=== PATIENT | female | born 1995 | race Caucasian/White ===

== ENCOUNTER → 2016-12-27 | Outpatient (REF) | payer OTHER ==
[~2016-12-27] MED LIST: ALBU17IN2 INH; BUPR75TA5 PO; MONT10TA2 PO; OMEP10CASR PO; PRIL40CA PO; SING10TA32 PO; TRAZO50TA PO
== END ==
LOC: M LAB REF 11:42
PROVIDERS: ATTEND Physician Assistant
DX: J11.1 Influenza due to unidentified influenza virus with other respiratory manifestations (principal)

== ENCOUNTER 2017-04-02 22:57 | Emergency (ER) | payer OTHER, SELFPAY ==
[~2017-04-02] VITALS: Ht 167.6 cm; Wt 202.3 kg
[2017-04-02 22:57] VITALS: BP 176/83
== END 2017-04-03 03:41 | disposition left against medical advice (07) ==
LOC: M ED 04-03 03:31
DX: R21 Rash and other nonspecific skin eruption (principal); Z53.29 Procedure and treatment not carried out because of patient's decision for other reasons

== ENCOUNTER 2017-08-02 21:13 | Emergency (ER) | payer SELFPAY ==
[~2017-08-02] VITALS: Ht 175.3 cm; Wt 188.6 kg
[2017-08-02 23:24] LABS: BASO # 0.1 10^3/uL (0.0-0.2); BASO % 0.3 % (0.0-1.0); EOS # 0.3 10^3/uL (0.0-0.50); EOS % 2.3 % (0.0-3.0); LYMPH % 20.1 % (24.0-44.0); MEAN CORPUSCULAR HEMOGLOBIN 27.3 pg (27.0-33.0); MEAN CORPUSCULAR HGB CONC 32.5 g/dl (32.0-36.5); MONO # 1.4 10^3/uL (0.0-0.8); MONO % 9.4 % (0.0-5.0); NEUTROPHILS # 10.1 10^3/uL (1.8-7.7); NEUTROPHILS % 66.9 % (36.0-66.0); PLATELET COUNT, AUTOMATED 307 10^3/uL (150-450); RED CELL DISTRIBUTION WIDTH 12.9 % (11.5-14.5); WHITE BLOOD COUNT 15.1 10^3/uL (4.0-10.0)
[2017-08-02 23:50] LABS: ANION GAP 7 MEQ/L (8-16); BLOOD UREA NITROGEN 10 MG/DL (7-18); CALCIUM LEVEL 8.7 MG/DL (8.5-10.1); CARBON DIOXIDE LEVEL 25 MEQ/L (21-32); CHLORIDE LEVEL 106 MEQ/L (98-107); CREATININE FOR GFR 0.73 MG/DL (0.55-1.02); GLUCOSE, FASTING 99 MG/DL (70-105); POTASSIUM SERUM 4.3 MEQ/L (3.5-5.1); SODIUM LEVEL 138 MEQ/L (136-145)
--- NOTE | 2017-08-03 | REPUSA ---
Clinical history: left upper leg swelling. Findings: Real-time ultrasound imaging of the left upper leg was performed. There is a complex irregu lar fluid collection at the site of concern in the left upper thigh, measuring 4.8 x 2.5 x 4.5 cm. N o other gross abnormalities. Impression: Findings are most consistent with a large abscess.
[2017-08-03] MEDS ORDERED: CLINDAMYCIN 900 MG in APPROPRIATE DILUENT 1 EA IV ONE (00:15)
[2017-08-03] MEDS ORDERED: LIDOCAINE 2% W/EPIN INJ 20ML **PRES FREE INJ ONE (00:15)
[2017-08-03] MEDS ORDERED: CLEO300C2 PO (00:45)
[2017-08-03] MEDS ORDERED: OXYCODONE/APAP 5MG/325MG(BULK FOR ED) 1 TABLET PO ONE (01:00)
[2017-08-03 01:34] VITALS: BP 136/66
== END 2017-08-03 01:45 | disposition home or self-care (01) ==
LOC: M ED 21:13
DX: L02.416 Cutaneous abscess of left lower limb (principal); J45.909 Unspecified asthma, uncomplicated; F41.9 Anxiety disorder, unspecified; F33.9 Major depressive disorder, recurrent, unspecified; Z88.8 Allergy status to other drugs, medicaments and biological substances; F17.210 Nicotine dependence, cigarettes, uncomplicated

== ENCOUNTER 2017-08-05 19:05 | Emergency (ER) | payer SELFPAY ==
[~2017-08-05] VITALS: Ht 175.3 cm; Wt 188.6 kg
[~2017-08-05 19:05] MED LIST changes: +CLEO300C2 PO
[2017-08-05 19:06] VITALS: BP 151/71
== END 2017-08-05 21:40 | disposition left against medical advice (07) ==
LOC: M ED 19:05
DX: Z53.29 Procedure and treatment not carried out because of patient's decision for other reasons (principal)

== ENCOUNTER → 2017-11-05 | Outpatient (REF) | payer SELFPAY | LOC: M LAB 15:28 | DX: R50.9 Fever, unspecified (principal) | CPT/HCPCS: 87633 ==

== ENCOUNTER 2017-11-06 16:31 | Emergency (ER) | payer SELFPAY ==
[2017-11-06] MEDS: predniSONE 20 MG TAB PO (17:45)
[2017-11-06] MEDS: ALBUTEROL SULFATE 2.5 MG/0.5 ML INH NEB SOLN NEB ×2 (17:52→19:13)
== END 2017-11-06 20:07 | disposition home or self-care (01) ==
LOC: M ED 16:31
DX: J45.901 Unspecified asthma with (acute) exacerbation (principal); J20.5 Acute bronchitis due to respiratory syncytial virus; K21.9 Gastro-esophageal reflux disease without esophagitis; F33.9 Major depressive disorder, recurrent, unspecified; F41.9 Anxiety disorder, unspecified; E28.2 Polycystic ovarian syndrome; F17.210 Nicotine dependence, cigarettes, uncomplicated; Z79.51 Long term (current) use of inhaled steroids; Z79.899 Other long term (current) drug therapy; Z79.2 Long term (current) use of antibiotics; Z88.8 Allergy status to other drugs, medicaments and biological substances; Z87.442 Personal history of urinary calculi
CPT/HCPCS: 71046

== ENCOUNTER 2018-07-15 17:14 | Emergency (ER) | payer SELFPAY ==
[2018-07-15] MEDS: IPRATROPIUM 0.5MG/ALBUTEROL 2.5MG INH SOL UD 3ML (DUONEB)(J7620) NEB (17:53)
== END 2018-07-15 18:50 | disposition home or self-care (01) ==
LOC: M ED 17:14
DX: J45.901 Unspecified asthma with (acute) exacerbation (principal); Z87.01 Personal history of pneumonia (recurrent); Z72.0 Tobacco use; Z88.8 Allergy status to other drugs, medicaments and biological substances
CPT/HCPCS: 71046

== ENCOUNTER 2019-02-02 12:09 | Emergency (ER) | payer BC, SELFPAY ==
[~2019-02-02] VITALS: Ht 175.3 cm; Wt 187.9 kg
[~2019-02-02 12:09] MED LIST changes: +ADV500INH INH; +MUCI600T37 PO; +OMEP40CA2 PO; +PRED20TA PO; +PROAAER10 INH; +PROZ40CA PO; +TRAZ1TAB6 PO; -TRAZO50TA PO; +VENTAER INH
[2019-02-02] MEDS ORDERED: KETOROLAC 30 MG/ML VIAL (J1885) IV ONE (13:00)
[2019-02-02] MEDS ORDERED: NS 1,000 ML IV ONE (13:00)
[2019-02-02] MEDS ORDERED: METOCLOPRAMIDE INJ 10MG/2ML VIAL (J2765) IV ONE (13:00)
[2019-02-02] MEDS ORDERED: diphenhydrAMINE INJ 50MG/ML VIAL (J1200) IV ONE (13:00)
[2019-02-02] MEDS ORDERED: ACETAMINOPHEN 500 MG TAB PO ONE (14:00)
[2019-02-02 15:05] VITALS: BP 123/62
== END 2019-02-02 15:08 | disposition home or self-care (01) ==
LOC: M ED 12:09
DX: G43.909 Migraine, unspecified, not intractable, without status migrainosus (principal); Z88.8 Allergy status to other drugs, medicaments and biological substances; F17.210 Nicotine dependence, cigarettes, uncomplicated
CPT/HCPCS: 81025; 87880; 96361; 96374; 96375; 99284; J1200; J1885; J2765

== ENCOUNTER 2019-05-08 20:42 | Emergency (ER) | payer BC ==
[~2019-05-08] VITALS: Ht 175.3 cm; Wt 174.6 kg
[~2019-05-08 20:42] MED LIST changes: +ZOFR4TAB16 PO
[2019-05-08 21:36] LABS: BASO % 0.4 % (0.0-1.0); EOS # 0.1 10^3/uL (0.0-0.50); EOS % 1.2 % (0.0-3.0); HEMATOCRIT 41.8 % (36.0-47.0); HEMOGLOBIN 14.3 g/dl (12.0-15.5); LYMPH # 2.5 10^3/uL (1.5-6.5); LYMPH % 29.6 % (24.0-44.0); MEAN CORPUSCULAR HEMOGLOBIN 29.2 pg (27.0-33.0); MEAN CORPUSCULAR HGB CONC 34.2 g/dl (32.0-36.5); MEAN CORPUSCULAR VOLUME 85.3 fl (80.0-96.0); MONO # 0.7 10^3/uL (0.0-0.8); MONO % 8.9 % (0.0-5.0); NEUTROPHILS % 59.5 % (36.0-66.0); PLATELET COUNT, AUTOMATED 253 10^3/uL (150-450); WHITE BLOOD COUNT 8.3 10^3/uL (4.0-10.0)
[2019-05-08 21:51] LABS: INR 0.99; PROTHROMBIN TIME 12.8 SECONDS (11.8-14.0)
[2019-05-08 21:52] LABS: PARTIAL THROMBOPLASTIN TIME 28.2 SECONDS (25.0-38.4)
[2019-05-08 22:01] LABS: BLOOD UREA NITROGEN 17 MG/DL (7-18); CALCIUM LEVEL 9.6 MG/DL (8.5-10.1); CARBON DIOXIDE LEVEL 31 MEQ/L (21-32); CHLORIDE LEVEL 109 MEQ/L (98-107); CK-MB VALUE MASS < 1.0 NG/ML (<3.6); CPK CREATINE PHOSPHOKINASE 76 U/L (26-192); CREATININE FOR GFR 0.57 MG/DL (0.55-1.30); GLOMERULAR FILTRATION RATE > 60.0 (>60); GLUCOSE, FASTING 85 MG/DL (70-100); HCG, SERUM QUANTITATIVE < 1.0 MIU/ML; MB/CK RELATIVE INDEX 1.32 (< OR =4); POTASSIUM SERUM 4.3 MEQ/L (3.5-5.1); SODIUM LEVEL 142 MEQ/L (136-145); TROPONIN I < 0.02 NG/ML (< 0.10)
[2019-05-08 22:45] VITALS: BP 134/72
--- NOTE | 2019-05-08 22:46 | REPVR ---
EXAM: CT Head Without Contrast EXAM DATE/TIME: 05/08/2019 10:25 PM CLINICAL HISTORY: 23 years old, female; Numbness / parasthesia and visual disturbance; Right; Additional info: Blurred vision, right sided face numbness TECHNIQUE: Imaging protocol: Computed tomography images of the head without contrast. Radiation optimization: All CT scans at this facility use at least one of these dose optimization techniques: automated exposure control; mA and/or kV adjustment per patient size (includes targeted exams where dose is matched to clinical indication); or iterative reconstruction. COMPARISON: CT Head without contrast 07/09/2014 2:31 PM (report not provided) FINDINGS: Brain: Normal. No hemorrhage. Unremarkable white matter. No mass effect. Ventricles: Normal. No ventriculomegaly. Bones/joints: Unremarkable. No acute fracture. Sinuses: Visualized sinuses are unremarkable. No fluid levels. Mastoid air cells: Visualized mastoid air cells are well aerated. No mastoid effusion. Soft tissues: Unremarkable. IMPRESSION: No CT evidence for acute intracranial abnormality. Electronically signed by: Ishmael Lawson On 05/08/2019 22:46:41 PM
[2019-05-08] MEDS ORDERED: predniSONE 20 MG TAB PO ONE (23:00)
[2019-05-08] MEDS ORDERED: PRED10TA2 PO (23:02)
--- NOTE | 2019-05-09 00:33 | ECGEPIP ---
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
[2019-05-11 00:08] LABS: Lyme Disease IgG/IgM Antibodie <0.91 ISR (0.00-0.90); Lyme Disease IgM Ab Quantitati <0.80 index (0.00-0.79)
== END 2019-05-08 23:31 | disposition home or self-care (01) ==
LOC: M ED 20:42
DX: G51.0 Bell's palsy (principal); R51 Headache; J45.909 Unspecified asthma, uncomplicated; F41.9 Anxiety disorder, unspecified; K21.9 Gastro-esophageal reflux disease without esophagitis; Z87.442 Personal history of urinary calculi; Z87.891 Personal history of nicotine dependence; Z88.8 Allergy status to other drugs, medicaments and biological substances

== ENCOUNTER 2019-06-04 02:39 | Emergency (ER) | payer BC ==
[~2019-06-04] VITALS: Ht 175.3 cm; Wt 171.8 kg
[2019-06-04 02:39] VITALS: BP 149/71
[~2019-06-04 02:39] MED LIST changes: +PRED10TA2 PO
[2019-06-04 03:21] LABS: BASO % 0.3 % (0.0-1.0); EOS # 0.2 10^3/uL (0.0-0.50); EOS % 1.8 % (0.0-3.0); HEMATOCRIT 38.8 % (36.0-47.0); HEMOGLOBIN 13.1 g/dl (12.0-15.5); LYMPH # 3.3 10^3/uL (1.5-6.5); LYMPH % 37.5 % (24.0-44.0); MEAN CORPUSCULAR HEMOGLOBIN 27.9 pg (27.0-33.0); MEAN CORPUSCULAR HGB CONC 33.8 g/dl (32.0-36.5); MEAN CORPUSCULAR VOLUME 82.7 fl (80.0-96.0); MONO # 0.8 10^3/uL (0.0-0.8); NEUTROPHILS # 4.6 10^3/uL (1.8-7.7); NEUTROPHILS % 51.2 % (36.0-66.0); PLATELET COUNT, AUTOMATED 233 10^3/uL (150-450); RED BLOOD COUNT 4.69 10^6/uL (4.00-5.40); WHITE BLOOD COUNT 8.9 10^3/uL (4.0-10.0)
[2019-06-04 03:49] LABS: BLOOD UREA NITROGEN 13 MG/DL (7-18); CALCIUM LEVEL 8.8 MG/DL (8.5-10.1); CARBON DIOXIDE LEVEL 26 MEQ/L (21-32); CHLORIDE LEVEL 109 MEQ/L (98-107); CREATININE FOR GFR 0.67 MG/DL (0.55-1.30); GLOMERULAR FILTRATION RATE > 60.0 (>60); GLUCOSE, FASTING 110 MG/DL (70-100); POTASSIUM SERUM 3.8 MEQ/L (3.5-5.1); SODIUM LEVEL 142 MEQ/L (136-145)
== END 2019-06-04 05:59 | disposition left against medical advice (07) ==
LOC: M ED 02:39
DX: Z53.21 Procedure and treatment not carried out due to patient leaving prior to being seen by health care provider (principal)

== ENCOUNTER 2019-07-15 12:09 | Emergency (ER) | payer BC ==
[~2019-07-15] VITALS: Ht 175.3 cm; Wt 172.6 kg
[2019-07-15] MEDS ORDERED: IPRATROPIUM 0.5MG/ALBUTEROL 2.5MG INH SOL UD 3ML (DUONEB)(J7620) NEB ONE (12:15)
[2019-07-15] MEDS ORDERED: CEFD1CAP8 (12:27)
[2019-07-15] MEDS ORDERED: BENZ200C70 (12:27)
[2019-07-15 12:45] LABS: BASO # 0.1 10^3/uL (0.0-0.2); BASO % 0.5 % (0.0-1.0); EOS # 0.2 10^3/uL (0.0-0.5); EOS % 1.8 % (0.0-3.0); HEMATOCRIT 42.2 % (36.0-47.0); LYMPH # 1.6 10^3/uL (1.5-5.0); LYMPH % 16.2 % (24.0-44.0); MEAN CORPUSCULAR HEMOGLOBIN 28.3 pg (27.0-33.0); MEAN CORPUSCULAR HGB CONC 33.2 g/dl (32.0-36.5); MEAN CORPUSCULAR VOLUME 85.3 fl (80.0-96.0); MONO # 0.8 10^3/uL (0.0-0.8); MONO % 8.5 % (0.0-5.0); NEUTROPHILS # 7.1 10^3/uL (1.5-8.5); NEUTROPHILS % 72.1 % (36.0-66.0); PLATELET COUNT, AUTOMATED 255 10^3/uL (150-450); RED BLOOD COUNT 4.95 10^6/uL (4.00-5.40); WHITE BLOOD COUNT 9.9 10^3/uL (4.0-10.0)
[2019-07-15 13:11] LABS: CK-MB VALUE MASS < 1.0 NG/ML (<3.6); CPK CREATINE PHOSPHOKINASE 103 U/L (26-192); MB/CK RELATIVE INDEX 0.97 (< OR =4); TROPONIN I < 0.02 NG/ML (< 0.10)
[2019-07-15 13:13] LABS: INFLUENZA A AMPLIFICATION NEGATIVE (NEGATIVE); INFLUENZA B AMPLIFICATION NEGATIVE (NEGATIVE)
[2019-07-15 13:18] LABS: BLOOD UREA NITROGEN 8 MG/DL (7-18); CALCIUM LEVEL 8.7 MG/DL (8.5-10.1); CARBON DIOXIDE LEVEL 28 MEQ/L (21-32); CHLORIDE LEVEL 107 MEQ/L (98-107); CREATININE FOR GFR 0.71 MG/DL (0.55-1.30); GLOMERULAR FILTRATION RATE > 60.0 (>60); GLUCOSE, FASTING 99 MG/DL (70-100); HCG, SERUM QUALITATIVE NEGATIVE (NEGATIVE); SODIUM LEVEL 141 MEQ/L (136-145)
[2019-07-15 13:52] VITALS: BP 142/74
[2019-07-15] MEDS ORDERED: LEVA750T7 PO (14:34)
--- NOTE | 2019-07-16 07:20 | REP ---
CHEST PA AND LATERAL: 07/15/2019. Comparison: 07/15/2018. Clinical history: Dyspnea and cough. States she is worse on antibiotics. Findings: Two-view show the lungs well inflated. There is patchy infiltrate in the right middle lobe and some subsegmental atelectasis or patchy left base infiltrate as well. No effusion. Heart, mediastinal and hilar contours are normal. Aorta and airway intact bony thorax shows no focal lesion. Chest wall piercings noted bilaterally. Impression: 1. Right middle lobe patchy infiltrate and basilar atelectasis or infiltrate left base. No effusion or other acute finding. Electronically Signed by Howard Uriarte MD 07/16/2019 08:23 A
--- NOTE | 2019-07-16 08:26 | ECGEPIP ---
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
== END 2019-07-15 14:45 | disposition home or self-care (01) ==
LOC: M ED 12:09
DX: J18.9 Pneumonia, unspecified organism (principal); J45.909 Unspecified asthma, uncomplicated; F41.9 Anxiety disorder, unspecified; F32.9 Major depressive disorder, single episode, unspecified; K21.9 Gastro-esophageal reflux disease without esophagitis; Z79.899 Other long term (current) drug therapy; Z87.09 Personal history of other diseases of the respiratory system; Z87.891 Personal history of nicotine dependence; Z88.8 Allergy status to other drugs, medicaments and biological substances

== ENCOUNTER → 2019-12-27 | Outpatient (REF) | payer BC ==
[~2019-12-27] MED LIST changes: +BENZ200C70; +CEFD1CAP8; +LEVA750T7 PO; -MONT10TA2 PO; +MONT10TA4 PO; -OMEP40CA2 PO; +OMEP40CA97 PO
[2019-12-27 23:01] LABS: INFLUENZA A AMPLIFICATION NEGATIVE (NEGATIVE); INFLUENZA B AMPLIFICATION NEGATIVE (NEGATIVE)
== END ==
LOC: M LAB REF 11:51
PROVIDERS: ATTEND Physician Assistant
DX: J11.1 Influenza due to unidentified influenza virus with other respiratory manifestations (principal)

== ENCOUNTER → 2020-01-19 | Outpatient (REF) | payer BC | LOC: M LAB REF 13:56 | PROVIDERS: ATTEND Physician Assistant Medical | DX: J02.9 Acute pharyngitis, unspecified (principal) ==

== ENCOUNTER 2020-06-16 20:40 | Emergency (ER) | payer OTHER, BC ==
[~2020-06-16] VITALS: Ht 175.3 cm; Wt 179.0 kg
[2020-06-16 20:41] VITALS: BP 141/68
[2020-06-16] MEDS ORDERED: AUGM875T28 PO (22:55)
[2020-06-16] MEDS ORDERED: BOOSTRIX/ADACEL VACCINE (DIPHTH/PERTUSS/ACELL/TETANUS) 0.5ML SYR IM ONE (23:00)
== END 2020-06-16 23:12 | disposition home or self-care (01) ==
LOC: M ED 20:40
DX: S40.871A Other superficial bite of right upper arm, initial encounter (principal); W50.3XXA Accidental bite by another person, initial encounter; Y92.89 Other specified places as the place of occurrence of the external cause; J45.909 Unspecified asthma, uncomplicated; K21.9 Gastro-esophageal reflux disease without esophagitis; F33.9 Major depressive disorder, recurrent, unspecified; F41.9 Anxiety disorder, unspecified; Z88.8 Allergy status to other drugs, medicaments and biological substances; F17.210 Nicotine dependence, cigarettes, uncomplicated

== ENCOUNTER → 2020-08-08 | Outpatient (CLI) | payer OTHER, BC ==
[~2020-08-08] MED LIST changes: +AUGM875T28 PO
== END ==
LOC: M LABSMTC 10:17
PROVIDERS: ATTEND Anesthesiology
DX: Z01.812 Encounter for preprocedural laboratory examination (principal); Z20.828 Contact with and (suspected) exposure to other viral communicable diseases
CPT/HCPCS: C9803; U0003

== ENCOUNTER 2020-08-13 08:35 | Day surgery (SDC) | payer BC ==
[~2020-08-13] VITALS: Ht 175.3 cm; Wt 181.9 kg
[~2020-08-13 08:35] MED LIST changes: +LR 1,000 ML IV ONE; +ceFAZolin SOD 2 GM in IV 1 EA IV ONE
[2020-08-13] MEDS ORDERED: LIDOCAINE 2% W/ EPINEPHRINE 1.7 ML DENTAL INJ As Ordered ONE (09:17)
[2020-08-13] MEDS ORDERED: CHLORHEXIDINE GLUCONATE 0.12 % 15ML UDC (PERIDEX ORAL RINSE) As Ordered ONE (09:48)
[2020-08-13] MEDS ORDERED: dexameTHASONE 4 MG/ML 1ML VIAL (J1100 PER 1MG) As Ordered ONE (10:04)
[2020-08-13] MEDS ORDERED: fentaNYL 250 MCG/5 ML INJECTION (J3010) As Ordered ONE (10:04)
[2020-08-13] MEDS ORDERED: propofoL 200 MG/20 ML VIAL As Ordered ONE (10:04)
[2020-08-13] MEDS ORDERED: ROCURONIUM BROMIDE 50 MG/5 ML VIAL As Ordered ONE (10:04)
[2020-08-13] MEDS ORDERED: ALBUTEROL 6.7GM INHALER **FOR ANES. CART/OMNICELL ONLY As Ordered ONE (10:04)
[2020-08-13] MEDS ORDERED: LIDOCAINE 2% 100MG/5ML SDV (FOR ANES.) As Ordered ONE (10:04)
[2020-08-13] MEDS ORDERED: SUCCINYLCHOLINE 100 MG/5 ML SYRINGE (J0330) As Ordered ONE (10:04)
[2020-08-13] MEDS ORDERED: MIDAZOLAM INJ 2MG/2ML VIAL (J2250 PER 1MG) As Ordered ONE (10:04)
[2020-08-13] MEDS ORDERED: ONDANSETRON 4MG/2ML VIAL As Ordered ONE (10:04)
[2020-08-13] MEDS ORDERED: ACETAMINOPHEN 1000MG 100ML IV BTL (OFIRMEV) (J0131 PER 10MG) As Ordered ONE (10:13)
[2020-08-13] MEDS ORDERED: SUGAMMADEX SODIUM 500 MG/5 ML VIAL (BRIDION) As Ordered ONE (10:16)
[2020-08-13 12:35] VITALS: BP 125/59
--- NOTE | 2020-08-14 07:43 | RO ---
DATE OF OPERATION: 08/13/2020 PREOPERATIVE DIAGNOSIS: Decayed teeth, numbers 1, 2, 13, 16, 17, 31, and 32. POSTOPERATIVE DIAGNOSIS: Decayed teeth, numbers 1, 2, 13, 16, 17, 31, and 32. FINDINGS: The findings were consistent with the preoperative diagnosis. PROCEDURE: Surgical extraction of teeth numbers 1, 2, 13, 16, 17, 31, and 32. SURGEON: Aleks Ambrosio DDS. PHYSICAL LABORATORY ASSISTANT: Ms. Mary Ambrosio. ANESTHESIOLOGIST: Mr. Alex Anderson CRNA and Dr. Segundo Wilburn MD. SPECIMENS: There were no specimens taken. ESTIMATED BLOOD LOSS: Minimal. FLUIDS: 300 mL lactated Ringers were replaced for the patient during the surgery. COMPLICATIONS: None. DISPOSITION: The patient was dispositioned to the PACU in stable condition with postoperative instructions as well as instructions for followup care. INDICATIONS FOR THE PROCEDURE: Jessica is a 24-year-old female who is morbidly obese and a smoker. She met Dr. Ambrosio at the clinic to discuss removal of seven teeth. She desired to be put to sleep, but was unable to be put to sleep in the office due to medical concerns. She elected to undergo the procedure under general anesthesia in the main operating room. All of the risks, complications, and alternatives were discussed with the patient. DESCRIPTION OF PROCEDURE: The patient was seen and identified in the pre- operative holding area. All necessary paperwork was completed. She was taken to operating room #4, where she was placed under general anesthesia via oral endotracheal intubation without any complications. The patient was then prepped and draped in a sterile fashion and a time-out was conducted. The throat was then suctioned clean and dry and a throat pack was placed. The patient's teeth were cleaned with chlorhexidine solution. Local anesthetic in the form of 2% Lidocaine with 1:100,000 epinephrine was injected into the left, right, lower, and upper sides of the mouth near the teeth. A total of 8 carpules at 1.7 mL per carpule was given. We then proceeded with removal of each of the teeth. Surgical removal was necessary due to the teeth being grossly decayed and root tips present. An incision was made in a sulcular fashion using a 15-blade for teeth number 1 and 2. Buccal bone was then removed. The teeth were sectioned and delivered. The sockets were curetted thoroughly and irrigated with copious amounts of saline and a suture was applied to close the tissue of 3-0 catgut. The same procedure was completed for teeth numbers 31, 32, 13, 16, and 17 in like manner. The patient was then found to have hemostatic. The throat was suctioned clean and dry and the throat pack was removed. The patient was allowed to emerge from general anesthesia and did so without any complications. MARIANNE
== END 2020-08-13 12:50 | disposition home or self-care (01) ==
LOC: M SDC 08:35 → EDSTATUS 08:45 → M SDC 12:50
PROVIDERS: ATTEND Dentist
DX: K02.9 Dental caries, unspecified (principal); F17.218 Nicotine dependence, cigarettes, with other nicotine-induced disorders; J45.909 Unspecified asthma, uncomplicated; E66.01 Morbid (severe) obesity due to excess calories; Z91.018 Allergy to other foods; Z88.8 Allergy status to other drugs, medicaments and biological substances; F12.10 Cannabis abuse, uncomplicated
CPT/HCPCS: 81025; 88300; D7210; J0131; J0330; J0690; J1100; J2250; J2405; J3010

== ENCOUNTER 2020-08-31 09:04 | Emergency (ER) | payer BC ==
[~2020-08-31] VITALS: Ht 175.3 cm; Wt 178.4 kg
[~2020-08-31 09:04] MED LIST changes: -LR 1,000 ML IV ONE; -ceFAZolin SOD 2 GM in IV 1 EA IV ONE
[2020-08-31 10:17] LABS: HEMATOCRIT 42.2 % (36.0-47.0); HEMOGLOBIN 13.6 g/dl (12.0-15.5); MEAN CORPUSCULAR HEMOGLOBIN 27.5 pg (27.0-33.0); MEAN CORPUSCULAR HGB CONC 32.2 g/dl (32.0-36.5); MEAN CORPUSCULAR VOLUME 85.3 fl (80.0-96.0); PLATELET COUNT, AUTOMATED 237 10^3/uL (150-450); RED BLOOD COUNT 4.95 10^6/uL (4.00-5.40); WHITE BLOOD COUNT 13.5 10^3/uL (4.0-10.0)
[2020-08-31 10:44] LABS: ACETAMINOPHEN LEVEL < 2.0 UG/ML (10.0-30.0); ALBUMIN 3.8 GM/DL (3.2-5.2); ALT/SGPT 26 U/L (12-78); BILIRUBIN,DIRECT 0.3 MG/DL (0.0-0.2); BILIRUBIN,TOTAL 0.9 MG/DL (0.2-1.0); BLOOD UREA NITROGEN 6 MG/DL (7-18); CALCIUM LEVEL 9.2 MG/DL (8.5-10.1); CARBON DIOXIDE LEVEL 26 MEQ/L (21-32); CHLORIDE LEVEL 108 MEQ/L (98-107); CREATININE FOR GFR 0.68 MG/DL (0.55-1.30); ETHYL ALCOHOL (ETHANOL) < 0.003 % (0.000-0.010); GLOMERULAR FILTRATION RATE > 60.0 (>60); GLUCOSE, FASTING 107 MG/DL (70-100); POTASSIUM SERUM 3.8 MEQ/L (3.5-5.1); SODIUM LEVEL 141 MEQ/L (136-145); TOTAL PROTEIN 7.3 GM/DL (6.4-8.2)
[2020-08-31 10:45] VITALS: BP 177/84
[2020-08-31 10:51] LABS: AMPHETAMINES LEVEL URINE NEGATIVE (NEGATIVE); BARBITURATES URINE NEGATIVE (NEGATIVE); BENZODIAZEPINES URINE NEGATIVE (NEGATIVE); CANNABINOIDS URINE POSITIVE (NEGATIVE); COCAINE METABOLITE URINE NEGATIVE (NEGATIVE); METHADONE URINE NEGATIVE (NEGATIVE); OPIATES URINE NEGATIVE (NEGATIVE); PHENCYCLIDINE URINE NEGATIVE (NEGATIVE)
== END 2020-08-31 10:47 | disposition home or self-care (01) ==
LOC: M ED 09:04
DX: F15.10 Other stimulant abuse, uncomplicated (principal); F32.9 Major depressive disorder, single episode, unspecified; F41.9 Anxiety disorder, unspecified; J45.909 Unspecified asthma, uncomplicated; Z88.8 Allergy status to other drugs, medicaments and biological substances; Z91.018 Allergy to other foods
CPT/HCPCS: 36415; 80048; 80076; 80307; 84443; 85027; 99284; G0480

== ENCOUNTER 2021-02-14 11:44 | Emergency (ER) | payer BC ==
[~2021-02-14] VITALS: Ht 175.3 cm; Wt 192.2 kg
[~2021-02-14 11:44] MED LIST changes: +MONT10TA10 PO; -MONT10TA4 PO
[2021-02-14 11:45] VITALS: BP 130/97
[2021-02-14] MEDS ORDERED: IBUP200C28 PO (11:51)
[2021-02-14] MEDS ORDERED: ACET650T15 PO (11:51)
== END 2021-02-14 13:30 | disposition home or self-care (01) ==
LOC: M ED 11:44
DX: J02.9 Acute pharyngitis, unspecified (principal); R51.9 Headache, unspecified; R05 Cough; M79.10 Myalgia, unspecified site; J45.909 Unspecified asthma, uncomplicated; Z88.8 Allergy status to other drugs, medicaments and biological substances; Z91.018 Allergy to other foods; F17.210 Nicotine dependence, cigarettes, uncomplicated
CPT/HCPCS: 87880; 99283; U0003

== ENCOUNTER 2021-04-03 07:50 | Emergency (ER) | payer BC ==
[~2021-04-03] VITALS: Ht 175.3 cm; Wt 199.5 kg
[~2021-04-03 07:50] MED LIST changes: +ACET650T15 PO; +IBUP200C28 PO; +OMEP40CA4 PO; -OMEP40CA97 PO
[2021-04-03] MEDS ORDERED: LEVALBUTEROL HFA 45MCG/ACT 15 GM INHALER INH PRN (08:35)
[2021-04-03] MEDS ORDERED: methylPREDNISolone 125MG 2ML VIAL IV ONE (08:35)
[2021-04-03 09:39] LABS: BASO # 0.1 10^3/uL (0.0-0.2); BASO % 0.4 % (0.0-1.0); EOS # 0.1 10^3/uL (0.0-0.5); EOS % 0.7 % (0.0-3.0); HEMATOCRIT 45.8 % (36.0-47.0); HEMOGLOBIN 14.7 g/dl (12.0-15.5); LYMPH # 1.6 10^3/uL (1.5-5.0); LYMPH % 12.9 % (24.0-44.0); MEAN CORPUSCULAR HGB CONC 32.1 g/dl (32.0-36.5); MEAN CORPUSCULAR VOLUME 87.2 fl (80.0-96.0); MONO # 0.7 10^3/uL (0.0-0.8); MONO % 5.9 % (2.0-8.0); NEUTROPHILS # 9.8 10^3/uL (1.5-8.5); NEUTROPHILS % 79.6 % (36.0-66.0); PLATELET COUNT, AUTOMATED 253 10^3/uL (150-450); RED BLOOD COUNT 5.25 10^6/uL (4.00-5.40); WHITE BLOOD COUNT 12.3 10^3/uL (4.0-10.0)
--- NOTE | 2021-04-03 09:55 | REP ---
INDICATION: productive cough COMPARISON: 07/15/2019. TECHNIQUE: PA/Lateral FINDINGS: Lungs: Clear, no infiltrate. Heart: Normal in size. Mediastinum: Mediastinal silhouette unremarkable. Pleural angles: Unremarkable.. Bones and soft tissues: Unremarkable. IMPRESSION: No acute pulmonary disease. <Electronically signed by Kofi Mckinney > 04/03/21 [id number]
[2021-04-03] MEDS ORDERED: MORPHINE 2 MG/ML 1ML VIAL (J2270) IV ONE (10:00)
[2021-04-03] MEDS ORDERED: MUCI600T31 PO (10:11)
[2021-04-03] MEDS ORDERED: MEDR4PAK PO (10:14)
[2021-04-03 10:26] VITALS: BP 132/62
== END 2021-04-03 10:51 | disposition home or self-care (01) ==
LOC: M ED 07:50
DX: J45.901 Unspecified asthma with (acute) exacerbation (principal); J44.9 Chronic obstructive pulmonary disease, unspecified; B34.8 Other viral infections of unspecified site; Z88.8 Allergy status to other drugs, medicaments and biological substances; Z91.018 Allergy to other foods; F17.210 Nicotine dependence, cigarettes, uncomplicated
CPT/HCPCS: 71046; 80047; 84702; 85025; 87798; 94640; 96374; 99284; J2930

== ENCOUNTER 2021-06-01 11:35 | Emergency (ER) | payer BC ==
[~2021-06-01] VITALS: Ht 172.7 cm; Wt 204.8 kg
[~2021-06-01 11:35] MED LIST changes: +MEDR4PAK PO; +MUCI600T31 PO
[2021-06-01] MEDS ORDERED: NS 1,000 ML IV ONE (12:55)
[2021-06-01] MEDS ORDERED: ONDANSETRON 4MG/2ML VIAL IV ONE (12:55)
[2021-06-01 13:48] LABS: HEMATOCRIT 38.3 % (36.0-47.0); HEMOGLOBIN 12.6 g/dl (12.0-15.5); MEAN CORPUSCULAR HEMOGLOBIN 28.5 pg (27.0-33.0); MEAN CORPUSCULAR HGB CONC 32.9 g/dl (32.0-36.5); MEAN CORPUSCULAR VOLUME 86.7 fl (80.0-96.0); PLATELET COUNT, AUTOMATED 190 10^3/uL (150-450); RED BLOOD COUNT 4.42 10^6/uL (4.00-5.40); WHITE BLOOD COUNT 8.3 10^3/uL (4.0-10.0)
[2021-06-01 14:01] LABS: INR 0.9; PROTHROMBIN TIME 12.5 SECONDS (12.7-14.5)
[2021-06-01 14:04] LABS: D-DIMER QUANT 468.77 ng/ml (<500)
[2021-06-01 14:20] LABS: EOSINOPHILS 1 % (0-3); LYMPHOCYTES 38 % (16-44); MONOCYTES 3 % (0-5); NEUTROPHILS 55 % (28-66)
[2021-06-01 14:23] LABS: ALBUMIN 3.3 GM/DL (3.2-5.2); ALT/SGPT 36 U/L (12-78); BILIRUBIN,DIRECT < 0.1 MG/DL (0.0-0.2); BILIRUBIN,TOTAL 0.5 MG/DL (0.2-1.0); BLOOD UREA NITROGEN 7 MG/DL (7-18); CALCIUM LEVEL 8.6 MG/DL (8.5-10.1); CARBON DIOXIDE LEVEL 25 MEQ/L (21-32); CHLORIDE LEVEL 111 MEQ/L (98-107); CREATININE FOR GFR 0.51 MG/DL (0.55-1.30); GLOMERULAR FILTRATION RATE > 60.0 (>60); GLUCOSE, FASTING 82 MG/DL (70-100); LIPASE 157 U/L (73-393); POTASSIUM SERUM 4.8 MEQ/L (3.5-5.1); SODIUM LEVEL 141 MEQ/L (136-145); TOTAL PROTEIN 6.9 GM/DL (6.4-8.2)
[2021-06-01 14:24] LABS: PLATELET ESTIMATE NORMAL (NORMAL)
[2021-06-01 14:40] VITALS: O2SAT 97
[2021-06-01] MEDS ORDERED: AUGM875T28 PO (16:03)
[2021-06-01 16:30] VITALS: BP 158/82
== END 2021-06-01 16:33 | disposition home or self-care (01) ==
LOC: M ED 11:35
DX: R10.9 Unspecified abdominal pain (principal); R11.2 Nausea with vomiting, unspecified; R19.7 Diarrhea, unspecified; R05 Cough; K21.9 Gastro-esophageal reflux disease without esophagitis; Z87.09 Personal history of other diseases of the respiratory system; Z87.442 Personal history of urinary calculi; Z88.8 Allergy status to other drugs, medicaments and biological substances; Z91.018 Allergy to other foods
CPT/HCPCS: 80048; 80076; 83605; 83690; 84702; 85025; 85379; 85610; 85730; 87040; 87880; 96361; 96374; 99284; J2405

== ENCOUNTER 2022-06-03 05:43 | Emergency (ER) | payer BC, SELFPAY ==
[~2022-06-03] VITALS: Ht 175.3 cm; Wt 197.7 kg
[~2022-06-03 05:43] MED LIST changes: -CEFD1CAP8; +CEFD300C41; -MONT10TA10 PO; +MONT10TA97 PO
[2022-06-03] MEDS ORDERED: ALBU2.5V10 INH (06:08)
[2022-06-03] MEDS ORDERED: NS 1,000 ML IV ONE (06:25)
[2022-06-03] MEDS ORDERED: ONDANSETRON 4MG 2ML VIAL IV ONE (06:25)
[2022-06-03] MEDS ORDERED: MORPHINE 4 MG/ML 1ML VIAL/SYRINGE IV ONE (06:25)
[2022-06-03] MEDS ORDERED: cefTRIAXone SOD 1 GM in D5W MINI-BAG PLUS 50 ML IV ONE (06:25)
[2022-06-03 07:00] LABS: BASO # 0.1 10^3/uL (0.0-0.2); BASO % 0.5 % (0.0-1.0); EOS # 0.1 10^3/uL (0.0-0.5); HEMATOCRIT 39.6 % (36.0-47.0); LYMPH # 2.1 10^3/uL (1.5-5.0); LYMPH % 16.3 % (24.0-44.0); MEAN CORPUSCULAR HEMOGLOBIN 27.6 pg (27.0-33.0); MEAN CORPUSCULAR HGB CONC 32.8 g/dl (32.0-36.5); MEAN CORPUSCULAR VOLUME 84.1 fl (80.0-96.0); MONO # 1.1 10^3/uL (0.0-0.8); MONO % 8.1 % (2.0-8.0); NEUTROPHILS # 9.6 10^3/uL (1.5-8.5); NEUTROPHILS % 73.5 % (36.0-66.0); PLATELET COUNT, AUTOMATED 279 10^3/uL (150-450); RED BLOOD COUNT 4.71 10^6/uL (4.00-5.40)
[2022-06-03 07:30] LABS: ERYTHROCYTE SEDIMENTATION RATE 61 mm/hr (0-20)
[2022-06-03 08:30] VITALS: BP 120/70
[2022-06-03] MEDS ORDERED: NAPR-837 PO (08:44)
[2022-06-03] MEDS ORDERED: DOXY-443 PO (08:44)
[2022-06-03] MEDS ORDERED: PERC5TAB12 PO (08:44)
[2022-06-03] MEDS ORDERED: PERCOCET 5MG/325MG TAB PO ONE (08:45)
[2022-06-03] MEDS ORDERED: KETOROLAC 30 MG/ML 1ML VIAL IV ONE (08:45)
== END 2022-06-03 09:00 | disposition home or self-care (01) ==
LOC: M ED 05:43
DX: L02.411 Cutaneous abscess of right axilla (principal); L03.111 Cellulitis of right axilla; J45.909 Unspecified asthma, uncomplicated; K21.9 Gastro-esophageal reflux disease without esophagitis; Z88.8 Allergy status to other drugs, medicaments and biological substances; Z91.018 Allergy to other foods
CPT/HCPCS: 76882; 80047; 83605; 85025; 85652; 86140; 96361; 96365; 96375; 99284; J0696; J1885; J2270; J2405

== ENCOUNTER 2023-10-17 12:57 | Emergency (ER) | payer OTHER, SELFPAY ==
[~2023-10-17] VITALS: Ht 175.3 cm; Wt 198.8 kg
[~2023-10-17 12:57] MED LIST changes: +ALBU2.5V10 INH; +CEFD1CAP9; -CEFD300C41; +DOXY-443 PO; +MONT-5 PO; +NAPR-837 PO; +PERC5TAB12 PO; -SING10TA32 PO
[2023-10-17 14:21] VITALS: BP 169/81; TEMP 97; O2SAT 99
== END 2023-10-17 14:23 | disposition home or self-care (01) ==
LOC: M ED 12:57
DX: U07.1 COVID-19 (principal); J45.909 Unspecified asthma, uncomplicated; Z87.891 Personal history of nicotine dependence; F41.9 Anxiety disorder, unspecified; F32.A Depression, unspecified; Z79.51 Long term (current) use of inhaled steroids; Z88.7 Allergy status to serum and vaccine; Z91.018 Allergy to other foods

== ENCOUNTER → 2023-11-24 | Outpatient (CLI) | payer OTHER ==
[2023-11-24 09:17] LABS: BASO % 0.4 % (0.0-1.0); EOS # 0.1 10^3/uL (0.0-0.5); EOS % 0.5 % (0.0-3.0); HEMATOCRIT 42.9 % (36.0-47.0); HEMOGLOBIN 14.5 g/dl (12.0-15.5); LYMPH % 19.6 % (24.0-44.0); MEAN CORPUSCULAR HEMOGLOBIN 28.7 pg (27.0-33.0); MEAN CORPUSCULAR HGB CONC 33.8 g/dl (32.0-36.5); MONO # 0.7 10^3/uL (0.0-0.8); MONO % 7.1 % (2.0-8.0); NEUTROPHILS # 7.4 10^3/uL (1.5-8.5); NEUTROPHILS % 71.8 % (36.0-66.0); PLATELET COUNT, AUTOMATED 262 10^3/uL (150-450); RED BLOOD COUNT 5.05 10^6/uL (4.00-5.40); WHITE BLOOD COUNT 10.3 10^3/uL (4.0-10.0)
[2023-11-24 09:34] LABS: ALBUMIN 3.7 G/DL (3.2-5.2); ALKALINE PHOSPHATASE 49 U/L (46-116); ALT/SGPT 30 U/L (7.0-40); AST/SGOT 21 U/L (<34); BILIRUBIN,TOTAL 0.6 MG/DL (0.3-1.2); BLOOD UREA NITROGEN 13 MG/DL (9-23); CALCIUM LEVEL 9.1 MG/DL (8.5-10.1); CARBON DIOXIDE LEVEL 25 MMOL/L (20-31); CHLORIDE LEVEL 108 MMOL/L (98-107); CHOLESTEROL LEVEL 175 MG/DL (<200); CHOLESTEROL RISK RATIO 3.68 (<5); CREATININE FOR GFR 0.58 MG/DL (0.55-1.30); FERRITIN 53.3 NG/ML (7.3-270.7); GLOMERULAR FILTRATION RATE > 60.0 (>60); GLUCOSE, FASTING 100 MG/DL (60-100); HDL CHOLESTEROL 47.5 MG/DL (>40); IRON (FE) 77 UG/DL (50-170); LDL CHOLESTEROL 93.3 MG/DL (<100); NON-HDL-C 127.5 MG/DL; PERCENT SATURATION 22.1 % (13.2-45.0); SODIUM LEVEL 139 MMOL/L (136-145); THYROID STIMULATING HORMONE 2.187 uIU/ML (0.55-4.78); TOTAL 25(OH) VITAMIN D 13.9 NG/ML (20.0-100.0); TOTAL IRON BINDING CAPACITY 348 UG/DL (250-425); TOTAL PROTEIN 7.1 G/DL (5.7-8.2); TRIGLYCERIDES LEVEL 171 MG/DL (<150)
[2023-11-24 09:35] LABS: FOLATE > 24.00 NG/ML (>5.4); VITAMIN B12 LEVEL 778 PG/ML (211-911)
[2023-11-24 09:36] LABS: FREE T4 1.12 NG/DL (0.89-1.76)
== END ==
LOC: M RAD 07:24
PROVIDERS: ATTEND Registered Nurse
DX: Z01.812 Encounter for preprocedural laboratory examination (principal); Z01.810 Encounter for preprocedural cardiovascular examination; D51.9 Vitamin B12 deficiency anemia, unspecified; E55.9 Vitamin D deficiency, unspecified; E66.01 Morbid (severe) obesity due to excess calories; Z13.220 Encounter for screening for lipoid disorders

== ENCOUNTER → 2023-11-28 | Outpatient (CLI) | payer OTHER | LOC: M RAD 07:16 | PROVIDERS: ATTEND Registered Nurse | DX: E66.01 Morbid (severe) obesity due to excess calories (principal); Z01.810 Encounter for preprocedural cardiovascular examination ==

== ENCOUNTER → 2025-04-30 | Outpatient (CLI) | payer BC ==
[~2025-04-30] MED LIST changes: -ADV500INH INH; +ADVA1AER10 INH; +DOXY-441 PO; -DOXY-443 PO; +PYRI25TA2 PO; +UNIS25TA3 PO
[2025-04-30 18:49] LABS: PLATELET COUNT, AUTOMATED 207 10^3/uL (150-450)
[2025-04-30 19:16] LABS: ESTIMATED AVERAGE GLUCOSE 85.0 MG/DL (60-110)
[2025-04-30 19:21] LABS: TOTAL 25(OH) VITAMIN D 30.3 NG/ML (20.0-100.0); VITAMIN B12 LEVEL 401 PG/ML (211-911)
[2025-04-30 19:30] LABS: Trichomonas vaginalis (AMP) NOT DETECTED (NEGATIVE)
[2025-04-30 19:43] LABS: HIV 1&2 SCREEN NEGATIVE (NEGATIVE)
[2025-04-30 19:51] LABS: HEPATITIS C VIRUS ABY INDEX < 0.02 INDEX (<0.8)
[2025-04-30 19:54] LABS: GC DNA AMPLIFICATION NEGATIVE (NEGATIVE)
== END ==
LOC: M PLALAB 16:13
PROVIDERS: ATTEND Advanced Practice Midwife
DX: Z34.01 Encounter for supervision of normal first pregnancy, first trimester (principal)

== ENCOUNTER → 2025-06-13 | Outpatient (CLI) | payer BC ==
[~2025-06-13] MED LIST changes: +ACET-1515 PO; -ACET650T15 PO
== END ==
LOC: M WHC 10:01
PROVIDERS: ATTEND Nurse Practitioner Family
DX: Z34.02 Encounter for supervision of normal first pregnancy, second trimester (principal); Z3A.20 20 weeks gestation of pregnancy

== ENCOUNTER 2025-08-05 08:03 | Emergency (ER) | payer BC ==
[~2025-08-05] VITALS: Ht 175.3 cm; Wt 150.2 kg
[2025-08-05] MEDS ORDERED: PROZ20CA12 PO (08:13)
[2025-08-05] MEDS ORDERED: MULTTAB20 PO (08:13)
[2025-08-05] MEDS ORDERED: BUSP15TA47 PO (08:13)
[2025-08-05] MEDS: ALBUTEROL SULFATE 2.5 MG/0.5 ML INH CONCENTRATE NEB SOLN NEB ONE (09:25)
[2025-08-05] MEDS ORDERED: VENTAER INH (11:15)
[2025-08-05] MEDS ORDERED: BENZ200C70 PO (11:15)
[2025-08-05] MEDS ORDERED: MUCI1TAB16 PO (11:15)
[2025-08-05] MEDS ORDERED: NEBU1EAC78 MC (11:15)
[2025-08-05] MEDS ORDERED: ALBU2.5V10 NEB (11:15)
[2025-08-05 11:26] VITALS: BP 125/56; TEMP 98.9; O2SAT 99
== END 2025-08-05 11:53 | disposition home or self-care (01) ==
LOC: M ED 08:03
DX: O99.513 Diseases of the respiratory system complicating pregnancy, third trimester (principal); Z3A.27 27 weeks gestation of pregnancy; O99.843 Bariatric surgery status complicating pregnancy, third trimester; Z88.8 Allergy status to other drugs, medicaments and biological substances; Z91.018 Allergy to other foods

== ENCOUNTER → 2025-09-26 | Outpatient (CLI) | payer BC ==
[~2025-09-26] MED LIST changes: +ALBU2.5V10 NEB; +BENZ200C70 PO; +BUPR-363 PO; -BUPR75TA5 PO; +BUSP15TA47 PO; +MUCI1TAB16 PO; +MULTTAB20 PO; +NEBU1EAC78 MC; +PROZ20CA25 PO
== END ==
LOC: M WHC 13:42
PROVIDERS: ATTEND Advanced Practice Midwife
DX: O99.843 Bariatric surgery status complicating pregnancy, third trimester (principal); O99.213 Obesity complicating pregnancy, third trimester; E66.01 Morbid (severe) obesity due to excess calories; Z3A.37 37 weeks gestation of pregnancy

== ENCOUNTER → 2025-10-07 | Outpatient (REF) | payer BC | LOC: M SFHCWAGY 17:02 | PROVIDERS: ATTEND Nurse Practitioner Family | DX: O99.843 Bariatric surgery status complicating pregnancy, third trimester (principal); Z3A.36 36 weeks gestation of pregnancy ==